=== PATIENT | male | born 1950 | race Two or more races ===

== ENCOUNTER 2017-03-29 16:55 | Emergency (ER) | payer MEDICARE, MEDICAID ==
[~2017-03-29] VITALS: Ht 170.2 cm; Wt 73.0 kg
--- NOTE | 2017-03-29 19:30 | NUR ---
PT A/OX4 BREATHING EFFORTLESSLY ON ROOM AIR, PT STATES HE TRIED TO TAKE HIS BP MEDICATION EARLIER TODAY BUT COULDNT KEEP IT DOWN AND NOW IS HERE FOR HIGH BP BUT PT STATES HE HAS NO SYMPTOMS JUST WANTS TO BE CHECKED OUT, PT ON MONITOR, IV PLACED LABS DRAWN, MD MADE AWARE WILL CONTINUE TO MONITOR.
[2017-03-29] MEDS ORDERED: LISINOPRIL (20MG) 20 MG TABLET PO STA (19:56)
[2017-03-29] MEDS ORDERED: LISINOPRIL (20MG) 20 MG TABLET ONE (20:09)
[2017-03-29 20:15] LABS: BASOPHILS % (AUTO) 0.5 % (0.0-2.0); EOSINOPHILS # (AUTO) 0.1 /CMM (0.0-0.7); EOSINOPHILS % (AUTO) 0.8 % (0.0-6.0); HEMATOCRIT 40 % (39-51); HEMOGLOBIN 13.6 g/dL (13.5-17.5); LYMPHOCYTES % (AUTO) 26.6 % (20.0-44.0); MEAN CORPUSCULAR HEMOGLOBIN 29 PG (26.0-33.0); MEAN CORPUSCULAR HGB CONC 34 g/dl (31.0-36.0); MEAN CORPUSCULAR VOLUME 85 fL (80-96); MONOCYTES # (AUTO) 0.4 /CMM (0.1-1.30); MONOCYTES % (AUTO) 4.8 % (2.0-12.0); NEUTROPHILS # (AUTO) 4.9 /CMM (1.8-8.9); NEUTROPHILS % (AUTO) 67.3 % (43.0-81.0); PLATELET COUNT (AUTO) 352 /CMM (150-450); RED BLOOD CELL COUNT(AUTO) 4.74 MIL/uL (4.5-6.0); WHITE BLOOD COUNT (AUTO) 7.4 K/uL (4.3-11.0)
--- NOTE | 2017-03-29 20:18 | NUR ---
WE DO NOT HAVE LISINOPRIL IN THE ER, REANNA ERNANDEZ CALLED AND TOLD ME TO GO AND GET IT FROM [facility]
[2017-03-29 20:29] LABS: ALANINE AMINOTRANSFERASE 39 U/L (12-78); ALKALINE PHOSPHATASE 79 U/L (46-116); ASPARTATE AMINOTRANSFERASE 28 U/L (15-37); BILIRUBIN,DIRECT 0.1 mg/dL (0.0-0.2); BILIRUBIN,TOTAL 0.3 mg/dL (0.2-1.0); CALCIUM, SERUM 9.5 mg/dL (8.5-10.1); CARBON DIOXIDE 31 mmol/L (21-32); CHLORIDE 103 mmol/L (98-107); CREATININE 0.9 mg/dL (0.6-1.3); GLUCOSE 105 mg/dL (74-106); LIPASE 175 U/L (73-393); SODIUM SERUM 138 mmol/L (136-145); TOTAL PROTEIN, SERUM 8.2 g/dL (6.4-8.2); UREA NITROGEN, BLOOD 15 mg/dL (7-18)
[2017-03-29 20:31] LABS: TROPONIN I < 0.017 ng/mL (0.00-0.056)
--- NOTE | 2017-03-29 21:10 | NUR ---
IV removed. Catheter intact and site benign. Pressure and 4x4 applied to site. No bleeding noted.Patient discharged to home in stable condition. Written and verbal after care instructions given. Patient verbalizes understanding of instruction.
[2017-03-29 21:11] VITALS: BP 149/84
== END 2017-03-29 21:12 | disposition home or self-care (01) ==
LOC: ER 16:58
DX: I10 Essential (primary) hypertension (principal); E78.00 Pure hypercholesterolemia, unspecified; E11.9 Type 2 diabetes mellitus without complications
CPT/HCPCS: 36415; 80048-TC; 80076-TC; 83690-TC; 84484-TC; 85025-TC; A4606; Z7610

== ENCOUNTER 2022-09-11 14:21 | Inpatient (IN) | payer MEDICAID, MEDICARE, OTHER ==
[~2022-09-11] VITALS: Ht 167.6 cm; Wt 73.0 kg
--- NOTE | 2022-09-11 14:23 | NUR ---
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 LKW >48HRS. AMBULATORY, PLACED IN BED, AAOX4, BREATHING EVEN AND UNLABORED SATURATING AT 96%RA.
--- NOTE | 2022-09-11 14:30 | NUR ---
BLOOD DRAWN AND SENT TO LAB
[2022-09-11 15:20] LABS: CALCIUM, SERUM 9.9 mg/dL (8.5-10.1); CARBON DIOXIDE 27 mmol/L (21-32); CHLORIDE 101 mmol/L (98-107); CREATININE 1.1 mg/dL (0.6-1.3); GLUCOSE 183 mg/dL (74-106); POTASSIUM 3.8 mmol/L (3.5-5.1); SODIUM SERUM 141 mmol/L (136-145); UREA NITROGEN, BLOOD 18 mg/dL (7-18)
[2022-09-11 15:26] LABS: ALANINE AMINOTRANSFERASE 48 U/L (12-78); ALBUMIN 4.1 g/dL (3.4-5.0); ALKALINE PHOSPHATASE 86 U/L (46-116); ASPARTATE AMINOTRANSFERASE 25 U/L (15-37); BILIRUBIN,DIRECT 0.1 mg/dL (0.0-0.2); BILIRUBIN,TOTAL 0.4 mg/dL (0.2-1.0); TOTAL PROTEIN, SERUM 8.5 g/dL (6.4-8.2)
[2022-09-11] MEDS ORDERED: ACETAMINOPHEN ES 500 MG TABLET PO ONE (15:30)
[2022-09-11 15:31] LABS: BASOPHILS % (AUTO) 0.6 % (0.0-2.0); EOSINOPHILS % (AUTO) 2.3 % (0.0-6.0); HEMATOCRIT 45 % (39-51); HEMOGLOBIN 14.9 g/dL (13.5-17.5); LYMPHOCYTES # (AUTO) 2.1 K/uL (0.8-4.8); LYMPHOCYTES % (AUTO) 31.1 % (20.0-44.0); MEAN CORPUSCULAR HGB CONC 34 g/dl (31.0-36.0); MEAN CORPUSCULAR VOLUME 85 fL (80-96); MONOCYTES # (AUTO) 0.6 K/uL (0.1-1.30); MONOCYTES % (AUTO) 8.3 % (2.0-12.0); NEUTROPHILS # (AUTO) 3.8 K/uL (1.8-8.9); NEUTROPHILS % (AUTO) 57.7 % (43.0-81.0); PLATELET COUNT (AUTO) 316 K/uL (150-450); RED BLOOD CELL COUNT(AUTO) 5.23 MIL/uL (4.5-6.0); WHITE BLOOD COUNT (AUTO) 6.7 K/uL (4.3-11.0)
[2022-09-11] MEDS ORDERED: ACETAMINOPHEN ES 500 MG TABLET ONE (15:33)
--- NOTE | 2022-09-11 15:35 | NUR ---
PATIENT TAKEN TO CT VIA [facility]
[2022-09-11] MEDS ORDERED: IOHEXOL-350 100 ML VIAL IV ONE (15:42)
[2022-09-11] MEDS ORDERED: IV NS 0.9% 250 ML IV ONE (15:43)
[2022-09-11] MEDS ORDERED: CT SWABBABLE VALVE TRANS SET 1 EA INFUS.SET MC ONE (15:43)
[2022-09-11 15:57] LABS: CHOLESTEROL 221 mg/dL (<200); HDL CHOLESTEROL 52 mg/dL (40-60); LDL 147 mg/dL (0-99); TRIGLYCERIDES 199 mg/dL (30-150)
[2022-09-11] MEDS ORDERED: SIMV-46 PO (16:51)
[2022-09-11] MEDS ORDERED: AMLO-212 PO (16:51)
[2022-09-11] MEDS ORDERED: METF-440 PO (16:51)
--- NOTE | 2022-09-11 17:37 | NUR ---
[facility] [phone]
--- NOTE | 2022-09-11 18:17 | NUR ---
SWAB FOR COVID19 SENT TO LAB
[2022-09-11] MEDS ORDERED: ASPIRIN 325 MG TABLET PO ONE (18:30)
--- NOTE | 2022-09-11 19:01 | NUR ---
FAXED CLINICALS TO [facility] [phone]
--- NOTE | 2022-09-11 19:45 | NUR ---
URINE SENT TO LAB
[2022-09-11 20:13] LABS: BILIRUBIN,URINE NEGATIVE (NEGATIVE); COLOR,URINE YELLOW (YELLOW); LEUKOCYTE ESTERASE ,URINE NEGATIVE (NEGATIVE); NITRITE, URINE NEGATIVE (NEGATIVE); PROTEIN,URINE NEGATIVE (NEGATIVE); UGLUCOSE NEGATIVE (NEGATIVE); UROBILINOGEN,URINE 0.2 EU/dL (0.2)
--- NOTE | 2022-09-11 20:19 | NUR ---
faxed covid result to April Huang (regal cm).
[2022-09-11 21:20] LABS: BACTERIA,URINE None seen /HPF (None Seen); RBC,URINE 21-50 /HPF (0-2); SQUAMOUS EPITHELIAL CELL,UR 0-2 /HPF (None Seen); WBC,URINE 0-2 /HPF (0-3)
[2022-09-11] MEDS ORDERED: HYDROCODONE/APAP 5/325MG TABLET PO ONE (23:00)
[2022-09-11] MEDS ORDERED: HYDROCODONE/APAP 5/325MG TABLET ONE (23:08)
[2022-09-12] VITALS (8 sets, daily range): BP systolic 135–157; BP diastolic 72–92
--- NOTE | 2022-09-12 01:00 | NUR ---
DR JAMILA CHILDRESS PER DR SCHULER
--- NOTE | 2022-09-12 02:24 | NUR ---
REPORT GIVEN TO KIN RN, 3W
--- NOTE | 2022-09-12 02:33 | NUR ---
sample shoe inspector and reworker notes Received Pt from HENRIQUE Payne. Pt arrived at the unit with ACLS protocol. Pt is alert and orientedX4. On room air. No SOB. No S/S of distress noted. VS is stable. Tele monitor showed SR hr at 63. IV site at RAC# 18 is clean, intact and flushes well. IV sites at LAC# 20 is clean, intact and SL. Pt's belonging was checked and signed by Pt. Pt refuses skin assessment. Pt stated "I'm fine. No wound." Explained risks and benefits. Pt is able to ambulates with a steady gait. Reoriented Pt to the room and the use of call light. Pt verbalize understanding. Safety precautions is maintained. Bed at low position, brakes locked, side rails upX2, hob elevated, bed alarm is on, urinal at the bedside and call light is within reach. Will continue to monitor.
--- NOTE | 2022-09-12 02:37 | NUR ---
PT SENT TO 325-1 VIA ACLS PROTOCOL.
--- NOTE | 2022-09-12 02:40 | NUR ---
RN notes NIHSS Stroke nursing bedside asssessment is done and performed. Neuro checks is done. NO deficits noted. Pt is alert and orientedX4. No S/S of distress noted. follows command and able to answered questions with no difficulties. Charge nurse is aware and informed. Will continue to monitor.
[2022-09-12] MEDS ORDERED: ZOLPIDEM TARTRATE 5 MG TABLET PO PRN (03:00)
[2022-09-12] MEDS ORDERED: *INSULIN REGULAR(HUMULIN R)HUM 100 UNIT/ML VIAL SQ PRN (03:00)
[2022-09-12] MEDS ORDERED: DEXTROSE 50%-WATER 50 ML DISP.SYRIN IV PRN (03:00)
--- NOTE | 2022-09-12 03:14 | NUR ---
RN notes Pt passed bedside nursing swallow eval. No S/S of distress noted. No S/S of deficit. Pt tolerated well. Charge nurse is aware and informed.
--- NOTE | 2022-09-12 03:43 | NUR ---
RN notes Pt signed a consent for MRI WO contrast and checklist. Information provided by Pt. Placed in Pt's chart.
[2022-09-12] MEDS: BLOOD SUGAR DIAGNOSTIC 1 EACH STRIP VI SCH ×4 (06:05→21:26)
[2022-09-12] MEDS: INSULIN REGULAR, HUMAN 100 UNIT/ML 3 ML VIAL SQ PRN ×2 (06:07→17:40)
--- NOTE | 2022-09-12 06:44 | NUR ---
RN closing notes Pt is resting in bed comfortably. Pt is alert and orientedX4. on room air. No SOB. No S/S of distress noted. vs is stable. IV site at LAC# 20 is clean, intact and flushes well, SL. IV site at RAC# 18 is clean, intact and sl. Tele monitor showed sr hr at 63. Routine meds were given as ordered. Kept Pt clean, dry and comfortable. safety precautions is maintained. bed at low position, brakes locked, side rails upX2, hob elevated all the time, bed alarm is on and call light is within reach. Will endorse to am nurse for SANGITA.
[2022-09-12 07:00] LABS: CALCIUM, SERUM 9.5 mg/dL (8.5-10.1); CREATININE 1.1 mg/dL (0.6-1.3)
[2022-09-12 07:19] LABS: BASOPHILS % (AUTO) 0.7 % (0.0-2.0); EOSINOPHILS % (AUTO) 3.9 % (0.0-6.0); HEMATOCRIT 43 % (39-51); HEMOGLOBIN 14.2 g/dL (13.5-17.5); LYMPHOCYTES # (AUTO) 2.3 K/uL (0.8-4.8); LYMPHOCYTES % (AUTO) 38.9 % (20.0-44.0); MEAN CORPUSCULAR HGB CONC 33 g/dl (31.0-36.0); MEAN CORPUSCULAR VOLUME 85 fL (80-96); MONOCYTES # (AUTO) 0.5 K/uL (0.1-1.30); NEUTROPHILS # (AUTO) 2.8 K/uL (1.8-8.9); NEUTROPHILS % (AUTO) 47.5 % (43.0-81.0); PLATELET COUNT (AUTO) 331 K/uL (150-450); WHITE BLOOD COUNT (AUTO) 5.9 K/uL (4.3-11.0)
--- NOTE | 2022-09-12 07:20 | NUR ---
ENGINE REPAIRER PRODUCTION OPENING NOTES RECEIVED PATIENT SLEEPING IN BED, EASILY AWAKEN, RESPONDING WELL AND FOLLOWS COMMAND. AOX4, REMAINS ON ROOM AIR WITHOUT BREATHING DIFFICULTY, NO DISTRESS NOTED WELL. ON TELEMONITORING SHOWING SR AT 69 BPM. DENIED PAIN NOR DISCOMFORT AT THE MOMENT. NEURO ASSESSMENT DONE, NO FOCAL WEAKNESS NOTED, PASSED SWALLOW EVALUATION. IV ACCESS ON RAC G#18 AND LAC G#20, CLEAN, PATENT AND FLUSHING WELL. SAFETY MEASURES IN PLACE: BED IN LOWEST AND LOCKED POSITION, SIDE RAILS X2, BED ALARM ON, CALL LIGHT AND TRAY TABLE WITHIN EASY REACH. WILL CONTINUE TO MONITOR.
[2022-09-12 07:43] LABS: THYROID STIMULATING HORMONE 5.572 uIU/mL (0.358-3.74)
[2022-09-12] MEDS ORDERED: ASPI-1420 PO (08:57)
[2022-09-12] MEDS: CLOPIDOGREL BISULFATE 75 MG TABLET PO SCH (09:09)
[2022-09-12] MEDS: LINAGLIPTIN 5 MG TABLET PO SCH (09:09)
[2022-09-12] MEDS: ASPIRIN 81 MG TAB.CHEW PO SCH (09:09)
[2022-09-12] MEDS: AMLODIPINE BESYLATE 5 MG TABLET PO SCH (09:10)
[2022-09-12] MEDS: ENOXAPARIN SODIUM 40 MG/0.4 ML DISP.SYRIN SQ SCH (09:11)
--- NOTE | 2022-09-12 10:10 | NUR ---
RN NOTES - PATIENT WAS ABLE TO TOLERATE PHYSICAL THERAPY, NO FOCAL WEAKNESSES NOTED, SON IS AT BEDSIDE.
--- NOTE | 2022-09-12 11:01 | NUR ---
RN NOTES - PT'S SON TOOK HOME HIS RING
[2022-09-12] MEDS: ACETAMINOPHEN 325 MG TABLET PO PRN ×2 (14:19→20:22)
--- NOTE | 2022-09-12 14:25 | NUR ---
RN NOTES - PT REQUESTED TYLENOL FOR MILD RIGHT LEG PAIN, GIVEN 650 MG, WILL CONTINUE TO MONITOR.
--- NOTE | 2022-09-12 18:08 | NUR ---
HENRIQUE NOTES - MRI RESULTS BACK, SENT TO DR MARINO AND VADIM ADLER. DR MARINO OKAY TO DISCHARGE PATIENT IF OKAY WITH NEUROLOGIST AND IF ECHO AND CAROTID US ARE UNREMARKABLE. PATIENT PREFERS TO BE SEEN BY NEUROLOGIST AND OCCUPATIONAL THERAPY WELL. MADE DR MARINO AWARE, AWAITING RESPONSE FROM VADIM ADLER. Addendum: 09/12/22 at 1915 by NINA CABRERA RN VADIM ADLER ANSWERED THAT DR CONWAY DOESNT WANT THE PATIENT TO BE DISCHARGED YET.
--- NOTE | 2022-09-12 19:11 | NUR ---
INTERMEDIATE TEACHER CLOSING NOTES PATIENT AWAKE IN BED, CALM, COOPERATIVE, AOX4, STILL ON ROOM AIR WITHOUT BREATHING DIFFICULTY. TELEMONITORING SHOWS SR WITH 61 BPM. AFEBRILE, NO COMPLAINTS OF PAIN NOR DISCOMFORT. NO ABNORMAL NEURO CHANGES NOTED DURING MY SHIFT. IV ACCESSES ON RAC G#18 AND LAC G#20, BOTH CLEAN, PATENT AND FLUSHING WELL. ALL NEEDS MET. ALL DUE MEDS GIVEN. SAFETY MEASURES MAINTAINED: BED IN LOWEST AND LOCKED POSITION, SIDE RAILS X2, BED ALARM ON, CALL LIGHT AND TRAY TABLE WITHIN EASY REACH. ENDORSED TO CASE ASSISTANT NURSE.
--- NOTE | 2022-09-12 20:14 | NUR ---
OCCUPATIONAL MEDICINE OFFICER Opening Note Pt in bed, awake, A/O x4, on RA, tele monitoring. IV access on RAC #18G, LAC #20G. Safety measures in place, bed in low, locked, side rails x2, bed alarm on, call light at reach. Will continue to monitor pt.
[2022-09-12] MEDS ORDERED: SIMVASTATIN 20 MG TABLET PO SCH ×2 (22:00)
[2022-09-13 00:11] VITALS: BP 127/63
[2022-09-13 04:48] VITALS: BP 132/73
[2022-09-13] MEDS: BLOOD SUGAR DIAGNOSTIC 1 EACH STRIP VI SCH (06:38)
[2022-09-13] MEDS: INSULIN REGULAR, HUMAN 100 UNIT/ML 3 ML VIAL SQ PRN (06:46)
--- NOTE | 2022-09-13 06:52 | NUR ---
LUNCHROOM OPERATOR Closing Note Pt in bed, awake, A/O x4, on RA, no s/s of SOB/distress/pain, BRP,tele monitoring 64. IV access on RAC #18G, LAC #20G, in place, patent. Safety measures in place, bed in low, locked, side rails x2, bed alarm on, call light at reach. Will endorse to the next shift nurse to continue to monitor pt.
--- NOTE | 2022-09-13 07:18 | NUR ---
SALES SERVICE REP OPENING NOTE PATIENT AWAKE IN BED, AOX4, ABLE TO MAKE NEEDS KNOWN. ON ROOM AIR WITH NO SIGNS OF RESPIRATORY DISTRESS NOTED. TELEMONITOR READING SR AT 68BPM. NO COMPLAINT OF PAIN OR DISCOMFORT AT THIS TIME. WITH IV ACCESSES ON RAC G#18 AND LAC G#20, PATENT AND INTACT. SAFETY MEASURES MAINTAINED WITH: BED IN LOWEST AND LOCKED POSITION, SIDE RAILS X2, BED ALARM ON, CALL LIGHT WITHIN EASY REACH. WILL CONTINUE WITH PLAN OF CARE.
--- NOTE | 2022-09-13 08:15 | NUR ---
CHASSIS MECHANIC NOTE SEEN BY DR. MARINO WITH ORDER ONCE CLEARED BY NEURO. HEALTH TEACHING DONE REGARDING DISCHARGE AND DISCHARGE INSTRUCTIONS. VERBALIZED UNDERSTANDING AND APPRECIATION. WILL CONTINUE WITH PLAN OF CARE.
[2022-09-13] MEDS: ENOXAPARIN SODIUM 40 MG/0.4 ML DISP.SYRIN SQ SCH (08:38)
[2022-09-13] MEDS: AMLODIPINE BESYLATE 5 MG TABLET PO SCH (08:40)
[2022-09-13] MEDS: CLOPIDOGREL BISULFATE 75 MG TABLET PO SCH (08:40)
[2022-09-13] MEDS: LINAGLIPTIN 5 MG TABLET PO SCH (08:40)
[2022-09-13] MEDS: ASPIRIN 81 MG TAB.CHEW PO SCH (08:40)
[2022-09-13] MEDS ORDERED: AMLODIPINE BESYLATE 5 MG TABLET PO SCH (09:00)
[2022-09-13] MEDS ORDERED: SIMV40TA2 PO (09:03)
[2022-09-13] MEDS ORDERED: CLOP75TA15 PO (09:03)
[2022-09-13] MEDS ORDERED: LINA5TAB PO (09:03)
[2022-09-13 09:10] VITALS: BP 155/89
[2022-09-13] MEDS ORDERED: AMLODIPINE BESYLATE 5 MG TABLET PO ONE (10:30)
--- NOTE | 2022-09-13 10:30 | NUR ---
CHARGE LOADER NOTE SEEN BY VITOR OF NEURO DEPARTMENT. WILL CLEAR PATIENT FOR DISCHARGE. CONDITION EXPLAINED BY LOAN OFFICER ASSISTANT TO PATIENT. VERBALIZED UNDERSTANDING AND APPRECIATION. IN STABLE CONDITION.
[2022-09-13 11:26] VITALS: BP 150/85
--- NOTE | 2022-09-13 12:00 | NUR ---
TRAIN STARTER NOTE PATIENT DISCHARGED ORDERED. CLEARED MEDICALLY BY MD AND NEURO. INSTRUCTIONS REINFORCED. VERBALIZED UNDERSTANDIGN AND APPRECIAITON. IV ACCESS REMOVED AND COVERED WITH DRY DRESSING. TOLERATED WELL. NOT IN DISTESS. TELEBOX REMOVED. PATIENT ACCOMPANIED TO LOBBY BY NURSE PICKED UP BY FAMILY MEMBER. DISCHARGED ORDERED. ENDORSED ACCORDINGLY.
[2022-09-14] MEDS ORDERED: AMLODIPINE BESYLATE 5 MG TABLET PO SCH (09:00)
[2022-09-14] MEDS ORDERED: METFORMIN 500 MG TABLET PO SCH (09:00)
== END 2022-09-13 12:00 | disposition home health service (06) | DRG 65 ==
LOC: ER 14:35 → TELE 09-12 02:10
PROVIDERS: ADMIT Internal Medicine; ATTEND Internal Medicine
DX: I63.9 Cerebral infarction, unspecified (principal); G81.91 Hemiplegia, unspecified affecting right dominant side; E11.9 Type 2 diabetes mellitus without complications; I10 Essential (primary) hypertension; R47.81 Slurred speech; R29.702 NIHSS score 2; E78.5 Hyperlipidemia, unspecified; Z79.84 Long term (current) use of oral hypoglycemic drugs; Z79.899 Other long term (current) drug therapy; I67.2 Cerebral atherosclerosis
CPT/HCPCS: 36415; 70496-TC; 70551-TC; 71045-TC; 80048-TC; 80061-TC; 80076-TC; 81001; 82962-TC; 84443-TC; 84484-TC; 85025-TC; 85730-TC; 87081-TC; 92507-TC; 92521; 93307-TC; 93880-TC; 97116-TC; 97530-TC; C9803; G0378; J1650; J1815; J7050; Q9967